=== PATIENT | female | born 1995 | race Caucasian/White ===

== ENCOUNTER 2023-09-04 04:43 | Day surgery (SDC) | payer OTHER ==
[2023-09-02 12:07] VITALS: BMI 25.0
[2023-09-04] MEDS ORDERED: BUPIVACAINE HCL/PF 0.25% (2.5MG/ML) 10 ML VIAL ONE (10:08)
[2023-09-04] MEDS ORDERED: DEXAMETHASONE SOD PHOSPHATE 4 MG/1 ML VIAL ONE (10:31)
[2023-09-04] MEDS ORDERED: PROPOFOL 40 ML ONE (10:31)
[2023-09-04] MEDS ORDERED: ROCURONIUM BROMIDE 50 MG/5 ML SYRINGE ONE (10:31)
[2023-09-04] MEDS ORDERED: FENTANYL CITRATE/PF 50 MCG/ML VIAL ONE ×2 (10:31→11:45)
[2023-09-04] MEDS ORDERED: ONDANSETRON 4 MG/2 ML VIAL ONE (10:31)
[2023-09-04] MEDS ORDERED: MIDAZOLAM HCL 2 MG/2 ML SINGLE DOSE VIAL ONE (10:32)
[2023-09-04] MEDS ORDERED: BUPIVACAINE HCL/PF 0.25% (2.5MG/ML) 10 ML VIAL IM ONE (11:23)
[2023-09-04] MEDS ORDERED: NEOSTIGMINE METHYLSULFATE 0.5 MG/1 ML - 10 ML MDV ONE (11:37)
[2023-09-04] MEDS ORDERED: PROPOFOL 20 ML ONE (11:53)
[2023-09-04] MEDS ORDERED: oxyCODONE HCL 5 MG TABLET PO PRN ×2 (12:06)
[2023-09-04] MEDS ORDERED: ONDANSETRON 4 MG/2 ML VIAL IVPUSH PRN (12:06)
[2023-09-04 13:39] VITALS: RESP 18
[2023-09-04 14:06] VITALS: TEMP 98.3
[2023-09-06 08:33] VITALS: BP 130/76; PULSE 85
== END 2023-09-04 14:30 | disposition home or self-care (01) ==
LOC: JASU-SURG 04:43
PROVIDERS: ATTEND Obstetrics & Gynecology
PROC: 0UB74ZZ Excision of Bilateral Fallopian Tubes, Percutaneous Endoscopic Approach (ICD-10-PCS; principal; 2023-09-04 11:00)
DX: Z30.2 Encounter for sterilization (principal)
CPT/HCPCS: 81025; 88305-TC; 94760